=== PATIENT | female | born 1950 | race African-American/Black ===

== ENCOUNTER 2021-12-16 09:08 | Outpatient (CLI) | payer MEDICARE, OTHER ==
[~2021-12-16 09:08] MED LIST: barium sulfate 450ml oral suspension ONE
== END 2021-12-16 23:59 | disposition home or self-care (01) ==
LOC: RAD 09:08
PROVIDERS: ATTEND Family Medicine
DX: K44.9 Diaphragmatic hernia without obstruction or gangrene (principal); K22.4 Dyskinesia of esophagus
CPT/HCPCS: 74220

== ENCOUNTER 2022-09-13 14:50 | Outpatient (CLI) | payer MEDICARE, OTHER | END 2022-09-13 23:59 | disposition home or self-care (01) | LOC: RAD 14:50 | PROVIDERS: ATTEND Internal Medicine Rheumatology | DX: K21.9 Gastro-esophageal reflux disease without esophagitis (principal); R13.14 Dysphagia, pharyngoesophageal phase; R49.0 Dysphonia | CPT/HCPCS: 74230 ==